=== PATIENT | female | born 1995 | race Hispanic/Latino ===

== ENCOUNTER 2024-03-11 01:16 | Emergency (ER) | payer MEDICAID ==
[~2024-03-11] VITALS: Ht 160 cm; Wt 95.3 kg
[2024-03-11 02:01] LABS: BILIRUBIN,URINE NEGATIVE (NEGATIVE); COLOR,URINE LIGHT-YELLOW (YELLOW); GLUCOSE, URINE (UA) NEGATIVE (NEGATIVE); KETONES,URINE NEGATIVE (NEGATIVE); LEUKOCYTE ESTERASE ,URINE NEGATIVE Leu/uL (NEGATIVE); NITRATE,URINE NEGATIVE (NEGATIVE); OCCULT BLOOD,URINE NEGATIVE (NEGATIVE); PH,URINE 5.5 (5.0-8.0); PROTEIN,URINE NEGATIVE (NEGATIVE); UROBILINOGEN,URINE 0.2 mg/dL (0.2-1.0)
[2024-03-11 02:05] LABS: HCG,QUALITATIVE URINE NEGATIVE (NEGATIVE)
[2024-03-11 02:06] LABS: ADD UA MICROSCOPIC NO; APPEARANCE,URINE CLEAR (CLEAR)
[2024-03-11] MEDS: 0.9%NACL 1000ML 1,000 ML IV SCH (02:23)
[2024-03-11] MEDS: ondanSETRON 4MG INJ IVP ONE (02:23)
--- NOTE | 2024-03-11 02:35 | ERN ---
ED Note History of Present Illness Stated Complaint: VOMITING Chief Complaint: Nausea,Vomiting,Diarrhea Time Seen by MD: 01:40 Dictation: Patient is a 28-year-old female who presented to the ER complaining of nausea and vomit, no diarrhea. Stated that symptoms started 4 hours prior arrival to the emergency department. Denies fever, denies chills, no sick contacts, no abdominal pain. Allergies: Coded Allergies: No Known Drug Allergies (Unverified Allergy, Unknown, 03/11/24) Home Meds Active Scripts Ondansetron HCl (Ondansetron HCl) 4 Mg/5 Ml Solution, 4 MG PO Q6HPRN for nausea, #15 ML Prov:LISETH MICHELLE MD 03/11/24 Past Medical History Past Medical History: Anxiety Surgical History: Tonsillectomy LMP: Mar 02, 2024 Review of System Dictation NEGATIVE EXCEPT PER HPI Constitutional: Negative for fever,chills, and weight loss Eyes: Negative for injury, pain,redness, and discharge ENT: Negative for injury,pain or swelling Cardiovascular: denies chest pain, palpitations, and edema Respiratory: Negative for shortness of breath, cough, and wheezing, Abdomen/GI: Reports nausea and vomiting Back: Negative for injury and pain : Negative for injury, bleeding and discharge MS/Extremity: Negative for injury and deformity Skin: Negative for rash, and discoloration Neuro: Negative for headache, weakness, numbness, tingling, and seizure Psych: Negative for suicide ideation, homicidal ideation, and hallucinations Initial Vital Sign VS Vital Signs Date Time Temp Pulse Resp B/P (MAP) Pulse Ox O2 Delivery O2 Flow Rate FiO2 03/11/24 01:21 98.2 96 18 156/104 98 Room Air 0 Physical Exam Dictation General: awake, alert, NAD Head/Face: Normocephalic, atraumatic Eyes: PERRL, EOMI, vision at baseline ENT: oral cavity clear, TMs clear, no signs of infection Neck: Trachea midline, supple, no nuchal rigidity Cardiovascular: RRR, normal S1/S2, No MRGs, no JVD Respiratory: CTAB, no respiratory distress, No rales or wheezes Abdomen: Soft , no tender Skin: Warm, dry, normal turgor, no rash MS/Extremity: Pulses equal, no cyanosis, neurovascular intact, FROM Neuro: COAx4, GCS 15, strength 5/5, CN 2-12 intact, normal cerebellar exam, normal gait, Psych: Normal behavior, mood, and affect normal Results (Laboratory/Radiology) Laboratory/Radiology Laboratory Tests Test 03/11/24 01:30 Urine Color LIGHT-YELLOW (YELLOW) Urine Appearance CLEAR (CLEAR) Urine pH 5.5 (5.0-8.0) Urine Specific [place] 1.025 (1.001-1.031) Urine Protein NEGATIVE mg/dL (NEGATIVE) Urine Glucose (UA) NEGATIVE mg/dL (NEGATIVE) Urine Ketones NEGATIVE mg/dL (NEGATIVE) Urine Occult Blood NEGATIVE (NEGATIVE) Urine Nitrate NEGATIVE (NEGATIVE) Urine Bilirubin NEGATIVE mg/dL (NEGATIVE) Urine Urobilinogen 0.2 mg/dL (0.2-1.0) Urine Leukocyte Esterase NEGATIVE Daryl/uL Urine HCG, Qualitative NEGATIVE (NEGATIVE) ED Course ED Course Orders Procedure Category Date Status Time Urinalysis Profile LAB 03/11/24 Complete 01:33 ,Urine Test LAB 03/11/24 Complete 01:33 0.9%Nacl 1000ml (Ns PHA 03/11/24 In Process 1000ml) 02:00 Ondansetron 4mg Inj PHA 03/11/24 Complete (Zofran 4mg Inj) 02:00 Current Medications Medications (Trade) Dose Ordered Sig/Rashawn Route PRN Reason Start Time Stop Time Status Last Admin Dose Admin Ondansetron HCl (zoFRAN 4MG INJ) 4 mg ONCE ONCE IVP 03/11/24 02:00 03/11/24 02:01 DC 03/11/24 02:23 Sodium Chloride 1,000 ml @ 0 mls/hr Q0M IV 03/11/24 02:00 04/10/24 01:59 03/11/24 02:23 Vital Signs Date Time Temp Pulse Resp B/P (MAP) Pulse Ox O2 Delivery O2 Flow Rate FiO2 03/11/24 01:21 98.2 96 18 156/104 98 Room Air 0 Medical Decision Making MDM Patient is a 28-year-old female who presented to the ER complaining of nausea and vomit, no diarrhea. Stated that symptoms started 4 hours prior arrival to the emergency department. Denies fever, denies chills, no sick contacts, no abdominal pain. Rationale: Acute viral infection, food poison. Ordered IV fluids Zofran IV UA is negative for UTI Patient he will be re-evaluated after fluids hydration. Patient has not vomited Vital signs remained stable Patient will be discharged home with recommendation to drink plenty amount of water to keep hydrated, Larry will be sent to her pharmacy of choice in case patient has nausea or vomiting. DX & DISP Disposition: Discharge Departure Impression: Primary Impression: Viral infection Additional Impression: Nausea & vomiting Condition: Improved Scripts Ondansetron HCl (Ondansetron HCl) 4 Mg/5 Ml Solution 4 MG PO Q6HPRN for nausea, #15 ML Prov: LISETH MICHELLE MD 03/11/24 Additional Instructions: RETURN TO ER FOR ANY ACUTE OR WORSENING SYMPTOMS. FOLLOW-UP IN 1-2 DAYS WITH PRIMARY PROVIDER FOR RECHECK OF TODAY'S SYMPTOMS. Referrals: SELF,REFERRAL (PCP) Time of Disposition: 03:08 LISETH MICHELLE MD Mar 11, 2024 02:34
--- NOTE | 2024-03-11 03:00 | NUR ---
ASSUMED PT CARE
[2024-03-11] MEDS ORDERED: ONDA4SOL PO (03:10)
[2024-03-11] MEDS ORDERED: MECL-226 PO (03:36)
[2024-03-11 03:41] VITALS: BP 135/65; PULSE 88; RESP 18; TEMP 98.2; O2SAT 99
== END 2024-03-11 03:57 | disposition home or self-care (01) ==
LOC: EDH 01:16
DX: B34.9 Viral infection, unspecified (principal); R11.2 Nausea with vomiting, unspecified; F41.9 Anxiety disorder, unspecified; Z79.899 Other long term (current) drug therapy; Z90.89 Acquired absence of other organs
CPT/HCPCS: 99283; 96374; 81003; 81025; J7030; J2405